=== PATIENT | male | born 1970 | race African-American/Black ===

== ENCOUNTER 2018-12-26 01:53 | Emergency (ER) | payer SELFPAY ==
[~2018-12-26] VITALS: Ht 182.9 cm; Wt 86.4 kg
[2018-12-26 01:58] VITALS: Ht 182.9 cm; Wt 86.4 kg
[2018-12-26] MEDS ORDERED: TOPROL XL50 MG (02:00)
[2018-12-26] MEDS ORDERED: NORVASC5 MG PO (02:01)
[2018-12-26] MEDS ORDERED: LISINOPRIL2.5 MG (02:01)
[2018-12-26] MEDS ORDERED: ASPIRIN81 MG (02:01)
[2018-12-26] MEDS ORDERED: HYDROXYZINE HCL10 MG (02:01)
[2018-12-26] MEDS ORDERED: METFORMIN HCL500 M1 (02:01)
[2018-12-26] MEDS ORDERED: PLAVIX75 MG PO (02:01)
[2018-12-26] MEDS ORDERED: PRAVACHOL20 MG PO (02:02)
[2018-12-26] MEDS ORDERED: NAPROSYN500 MG PO (05:02)
[2018-12-26] MEDS ORDERED: ULTRAM50 MG PO (05:02)
[2018-12-26 05:18] VITALS: BP 132/84
== END 2018-12-26 05:18 | disposition home or self-care (01) ==
LOC: D.ER 01:53
DX: M54.2 Cervicalgia (principal); M54.5 Low back pain; V43.52XA Car driver injured in collision with other type car in traffic accident, initial encounter; Y93.89 Activity, other specified; Y92.410 Unspecified street and highway as the place of occurrence of the external cause